=== PATIENT | male | born 1960 | race Caucasian/White ===

== ENCOUNTER 2019-11-18 17:27 | Emergency (ER) | payer BC ==
[2019-11-18] MEDS ORDERED: Sodium Chloride 0.9% 10 ML Syringe FLUSH PRN (17:47)
[2019-11-18] MEDS ORDERED: Sodium Chloride 0.9% 2.5 ML Syringe FLUSH PRN (17:47)
[2019-11-18] MEDS ORDERED: Diphtheria,Pertussis(Acell),Tetanus Vaccine 0.5 ML Syringe IM ONE (17:49)
--- NOTE | 2019-11-18 17:56 | EDM.PDOC ---
ED HPI GENERAL MEDICAL PROBLEM - General Chief Complaint: Upper Extremity Injury/Pain Stated Complaint: MIDDLE RT FINGER INJURY Time Seen by Provider: 11/18/19 17:35 - History of Present Illness INITIAL COMMENTS - FREE TEXT/NARRATIVE: History of present illness: Patient presents the right swollen middle finger he apparently had gone to an outpatient clinic earlier today and had an x-ray done and was diagnosed there with osteomyelitis he states he had cut the finger with a band saw 12 years ago requiring surgery and it has intermittently flared up and has nerve damage. He states for 3 weeks is been swollen but for the last 3 days has become much more swollen and hot and painful to the touch he denies any fever chills no other injuries no other concerns nothing is making it better touching it makes it worse Review of systems: As per history of present illness and below otherwise all systems reviewed and negative. Past medical history: As per history of present illness and as reviewed below otherwise noncontribut ory. Surgical history: As per history of present illness and as reviewed below otherwise noncontributory. Social history: No reported history of drug or alcohol abuse. Family history: As per history of present illness and as reviewed below otherwise noncontributory. Physical exam: HEENT: Atraumatic, normocephalic, pupils reactive, negative for conjunctival pallor or scleral icterus, mucous membranes moist, throat clear, neck supple, nontender, trachea midline. Lungs: Clear to auscultation, breath sounds equal bilaterally, chest nontender. Heart: S1S2, regular, negative for clicks, rubs, or JVD. Abdomen: Soft, nondistended, nontender. Negative for masses or hepatosplenomegaly. Negative for costovertebral tenderness. Pelvis: Stable nontender. Genitourinary: Deferred. Rectal: Deferred. Extremities: Atraumatic, negative for cords or calf pain. Neurovascular unremarkable. The right middle finger is extremely swollen red dry and cracked there is an abrasion over the middle knuckle that could be a likely source of infection. Neuro: Awake, alert, oriented. Cranial nerves II through XII unremarkable. Cerebellum unremarkable. Motor and sensory unremarkable throughout. Exam nonfocal. Diagnostics: [] Therapeutics: [] Impression: Finger infection [] Plan: Patient will need blood work IV antibiotics x-ray and admission most likely transfer to a center with a hand surgeon. [] Definitive disposition and diagnosis as appropriate pending reevaluation and review of above. right middle finger Pain Score (Numeric/FACES): 7 - Related Data Allergies Allergy/AdvReac Type Severity Reaction Status Date / Time Penicillins Allergy Cannot Verified 11/18/19 17:42 Remember Home Meds: Home Meds . [No Known Home Meds] 11/18/19 [History] Review of Systems - Review of Systems Review Of Systems: See Below ED EXAM, GENERAL - Physical Exam Exam: See Below Course - Vital Signs Text/Narrative:: 3 view right hand read interpreted by me there is postoperative change in the right middle finger the middle phalanx appears to have some destructive lesion consistent with osteomyelitis in the distal half of the phalanx there is a obvious gross tissue swelling in the middle digit. No gas is present read and interpreted by me I discussed case with Dr. Guerrero at 1850 at [facility] [facility] he will accept the patient the patient is insisting on going by private vehicle he is encouraged to go immediately from here to [facility] ED Last Recorded V/S: Last Vital Signs Temp 36.1 C 11/18/19 17:39 Pulse 87 11/18/19 17:39 Resp 18 11/18/19 17:39 BP 134/92 H 11/18/19 17:39 Pulse Ox 94 L 11/18/19 17:39 - Orders/Labs/Meds Orders: Active Orders 24 hr Category Date Time Status Vaccines to be Administered [RC] PER UNIT ROUTINE Care 11/18/19 17:49 Active Hand Comp Min 3V Rt [CR] Stat Exams 11/18/19 17:49 Taken Sodium Chloride 0.9% [Saline Flush] Med 11/18/19 17:47 Active 10 ml FLUSH ASDIRECTED PRN Sodium Chloride 0.9% [Saline Flush] Med 11/18/19 17:47 Active 2.5 ml FLUSH ASDIRECTED PRN Saline Lock Insert [OM.PC] Stat Oth 11/18/19 17:47 Ordered Medication Orders Sodium Chloride (Saline Flush) 10 ml FLUSH ASDIRECTED PRN PRN Reason: Keep Vein Open Last Admin: 11/18/19 18:06 Dose: 10 ml Documented by: VIALMEL Sodium Chloride (Saline Flush) 2.5 ml FLUSH ASDIRECTED PRN PRN Reason: Keep Vein Open Last Admin: 11/18/19 18:06 Dose: 2.5 ml Documented by: JOE Labs: Laboratory Tests 11/18/19 11/18/19 11/18/19 Range/Units 17:55 17:55 17:55 WBC 6.96 (4.0-11.0) K/uL RBC 4.75 (4.50-5.90) M/uL Hgb 14.3 (13.0-17.0) g/dL Hct 43.3 (38.0-50.0) % MCV 91.2 (80.0-98.0) fL MCH 30.1 (27.0-32.0) pg MCHC 33.0 (31.0-37.0) g/dL RDW Std Deviation 42.0 (28.0-62.0) fl RDW Coeff of Ezio 13 (11.0-15.0) % Plt Count 259 (150-400) K/uL MPV 9.20 (7.40-12.00) fL Neut % (Auto) 53.8 (48.0-80.0) % Lymph % (Auto) 33.8 (16.0-40.0) % [place] % (Auto) 9.5 (0.0-15.0) % Eos % (Auto) 2.6 (0.0-7.0) % Baso % (Auto) 0.3 (0.0-1.5) % Neut # (Auto) 3.8 (1.4-5.7) K/uL Lymph # (Auto) 2.4 (0.6-2.4) K/uL [place] # (Auto) 0.7 (0.0-0.8) K/uL Eos # (Auto) 0.2 (0.0-0.7) K/uL Baso # (Auto) 0.0 (0.0-0.1) K/uL Nucleated RBC % 0.0 /100WBC Nucleated RBCs # 0 K/uL ESR 25 H (0-19) mm/hr Sodium 138 (136-148) mmol/L Potassium 4.0 (3.5-5.1) mmol/L Chloride 105 (98-107) mmol/L Carbon Dioxide 24.9 (21.0-32.0) mmol/L BUN 14 (7.0-18.0) mg/dL Creatinine 0.9 (0.8-1.3) mg/dL Est Cr Clr Drug Dosing 83.65 mL/min Estimated GFR (MDRD) > 60.0 ml/min Glucose 127 H (74-106) mg/dL Calcium 8.8 (8.5-10.1) mg/dL Total Bilirubin 0.4 (0.2-1.0) mg/dL AST 51 H (15-37) IU/L ALT 65 H (14-63) IU/L Alkaline Phosphatase 110 (46-116) U/L C-Reactive Protein 2.50 H (0.00-0.90) mg/dL Total Protein 7.9 (6.4-8.2) g/dL Albumin 3.5 (3.4-5.0) g/dL Globulin 4.4 H (2.6-4.0) g/dL Albumin/Globulin Ratio 0.8 L (0.9-1.6) Meds: Medications Generic Name Dose Route Start Last Admin Trade Name Freq PRN Reason Stop Dose Admin Sodium Chloride 10 ml 11/18/19 17:47 11/18/19 18:06 Saline Flush FLUSH 10 ml ASDIRECTED PRN Administration Keep Vein Open Sodium Chloride 2.5 ml 11/18/19 17:47 11/18/19 18:06 Saline Flush FLUSH 2.5 ml ASDIRECTED PRN Administration Keep Vein Open Discontinued Medications Generic Name Dose Route Start Last Admin Trade Name Freq PRN Reason Stop Dose Admin Diphtheria/Tetanus/Acell Pertussis 0.5 ml 11/18/19 17:49 11/18/19 18:06 Adacel IM 11/18/19 17:50 0.5 ml .ONCE ONE Administration Vancomycin HCl 1,500 mg/ 100 mls @ 100 mls/hr 11/18/19 17:47 11/18/19 18:22 Sodium Chloride IV 11/18/19 18:46 Not Given ONETIME ONE Vancomycin HCl 1.5 gm/ Premix 300 mls @ 300 mls/hr 11/18/19 18:09 11/18/19 18:21 IV 11/18/19 18:10 300 mls/hr ONETIME ONE Administration Departure - Departure Time of Disposition: 18:52 Disposition: DC/Tfer to Acute Hospital 02 Preliminary Cause of *Q: Cardiac Arrest Condition: Good Clinical Impression: Osteomyelitis, Cellulitis of finger of right hand - Discharge Information *PRESCRIPTION DRUG MONITORING PROGRAM REVIEWED*: Not Applicable *COPY OF PRESCRIPTION DRUG MONITORING REPORT IN PATIENT DEREK: Not Applicable Instructions: Osteomyelitis, Adult, Cellulitis, Adult Referrals: PCP,None [Primary Care Provider] - Forms: ED Department Discharge Sepsis Event Note (ED) - Evaluation Sepsis Screening Result: No Definite Risk - Focused Exam Vital Signs: Vital Signs Temp Pulse Resp BP Pulse Ox 11/18/19 17:39 36.1 C 87 18 134/92 H 94 L - My Orders Last 24 Hours: My Active Orders 11/18/19 17:47 Sodium Chloride 0.9% [Saline Flush] 10 ml FLUSH ASDIRECTED PRN Sodium Chloride 0.9% [Saline Flush] 2.5 ml FLUSH ASDIRECTED PRN Saline Lock Insert [OM.PC] Stat 11/18/19 17:49 Vaccines to be Administered [RC] PER UNIT ROUTINE Hand Comp Min 3V Rt [CR] Stat - Assessment/Plan Last 24 Hours: My Active Orders 11/18/19 17:47 Sodium Chloride 0.9% [Saline Flush] 10 ml FLUSH ASDIRECTED PRN Sodium Chloride 0.9% [Saline Flush] 2.5 ml FLUSH ASDIRECTED PRN Saline Lock Insert [OM.PC] Stat 11/18/19 17:49 Vaccines to be Administered [RC] PER UNIT ROUTINE Hand Comp Min 3V Rt [CR] Stat
[2019-11-18 18:33] LABS: BLOOD UREA NITROGEN,BUN 14 mg/dL (7.0-18.0); CARBON DIOXIDE,CO2 24.9 mmol/L (21.0-32.0); CHLORIDE,CL 105 mmol/L (98-107); GLUCOSE RANDOM 127 mg/dL (74-106); SODIUM,NA 138 mmol/L (136-148)
--- NOTE | 2019-11-18 18:53 | CR ---
Right hand: 3 views of the right hand were obtained. Comparison: No previous study. Prior surgery is noted within the distal middle phalanx of the right 2nd finger. Distal fragments are poorly seen with cerclage wire in place. Diffuse soft tissue swelling is noted. Findings are suspicious for cellulitis and osteomyelitis at the surgery site. Joint spaces are maintained. No additional abnormality is noted. Impression: 1. Soft tissue swelling with the 3rd finger. Findings are suspicious for cellulitis and possible osteomyelitis at the surgical site. Diagnostic code #5 This report was dictated in MDT
== END 2019-11-18 19:30 ==
LOC: MW.ED 17:27
DX: L03.011 Cellulitis of right finger (principal); M86.9 Osteomyelitis, unspecified; Z88.0 Allergy status to penicillin; Z23 Encounter for immunization
CPT/HCPCS: 36415; 73130; 80053; 85025; 85652; 86140; 90471; 90715; 96365; 99285; J3370; 99283

== ENCOUNTER 2022-12-12 14:33 | Emergency (ER) | payer SELFPAY ==
[2022-12-12] MEDS ORDERED: Sodium Chloride 0.9% 20 ML SDV IV PRN (14:47)
[2022-12-12] MEDS ORDERED: Sodium Chloride 0.9% 2.5 ML Syringe FLUSH PRN (14:47)
[2022-12-12] MEDS ORDERED: Sodium Chloride 0.9% 10 ML Syringe FLUSH PRN (14:47)
[2022-12-12] MEDS ORDERED: Tenecteplase 50 MG Kit ONE (14:58)
[2022-12-12 15:22] LABS: BASOPHILS PERCENT AUTO 0.3 % (0.0-1.5); EOSINOPHILS ABSOLUTE AUTO 0.1 K/uL (0.0-0.7); EOSINOPHILS PERCENT AUTO 1.4 % (0.0-7.0); HEMATOCRIT 47.4 % (38.0-50.0); HEMOGLOBIN 16.4 g/dL (13.0-17.0); LYMPHOCYTES ABSOLUTE AUTO 2.3 K/uL (0.6-2.4); LYMPHOCYTES PERCENT AUTO 29.5 % (16.0-40.0); MEAN CORPUSCULAR HEMOGLOBIN 32.6 pg (27.0-32.0); MEAN CORPUSCULAR HGB CONC 34.6 g/dL (31.0-37.0); MEAN CORPUSCULAR VOLUME 94.2 fL (80.0-98.0); MONOCYTES ABSOLUTE AUTO 0.7 K/uL (0.0-0.8); MONOCYTES PERCENT AUTO 8.7 % (0.0-15.0); NEUTROPHILS ABSOLUTE AUTO 4.7 K/uL (1.4-5.7); NEUTROPHILS PERCENT AUTO 60.1 % (48.0-80.0); NRBC ABSOLUTE 0 K/uL; PLATELET COUNT,PLT 250 K/uL (150-400); RED BLOOD CELL COUNT 5.03 M/uL (4.50-5.90)
[2022-12-12 15:44] LABS: INR 0.96 (0.86-1.11); PTT,PARTIAL THROMBOPLSTIN TIME 26.7 SEC (23.9-30.7)
[2022-12-12 15:46] LABS: A/G RATIO 0.8 (0.9-1.6); ALBUMIN 3.6 g/dL (3.4-5.0); BILIRUBIN TOTAL 0.2 mg/dL (0.2-1.0); CALCIUM 8.8 mg/dL (8.5-10.1); CARBON DIOXIDE,CO2 22.8 mmol/L (21.0-32.0); CREATININE 0.9 mg/dL (0.8-1.3); EST CRCL DRUG DOSING (CG) 77.78 mL/min; POTASSIUM,K 3.8 mmol/L (3.5-5.1); PROTEIN TOTAL,TP 7.9 g/dL (6.4-8.2)
[2022-12-12] MEDS ORDERED: Tenecteplase 50 MG Kit IV STA (15:46)
[2022-12-12] MEDS ORDERED: Ofloxacin 0.3% Ophth Soln 5 ML Bottle EARLF ONE (15:54)
[2022-12-12] MEDS ORDERED: Cefdinir 300 MG Cap PO ONE (15:55)
[2022-12-12] MEDS ORDERED: Azithromycin 250 MG Tab PO ONE (15:55)
== END 2022-12-12 17:08 ==
LOC: MW.ED 14:33
DX: I63.9 Cerebral infarction, unspecified (principal); Z88.0 Allergy status to penicillin
CPT/HCPCS: 36415; 37195; 70450; 70450-26; 70496; 70496-26; 70498; 70498-26; 80053; 82947; 84484; 85025; 85610; 85730; 99291; 99292; A9270-GY; J3101; J3490

== ENCOUNTER 2024-03-31 10:38 | Emergency (ER) | payer SELFPAY ==
[2024-03-31 11:29] LABS: BASOPHILS ABSOLUTE AUTO 0.03 K/uL (0.00-0.20); BASOPHILS PERCENT AUTO 0.5 % (0.0-1.0); EOSINOPHILS ABSOLUTE AUTO 0.05 K/uL (0.00-0.45); EOSINOPHILS PERCENT AUTO 0.8 % (0.0-6.0); HEMATOCRIT 44.8 % (42.0-52.0); HEMOGLOBIN 15.7 g/dL (14.0-18.0); IMMATURE GRAN ABSOLUTE AUTO 0.02 K/uL (0.00-0.05); IMMATURE GRAN PERCENT AUTO 0.3 % (0.0-0.4); LYMPHOCYTES ABSOLUTE AUTO 1.99 K/uL (1.00-4.80); LYMPHOCYTES PERCENT AUTO 33.8 % (24.0-44.0); MEAN CORPUSCULAR HEMOGLOBIN 31.9 pg (28.0-32.0); MEAN CORPUSCULAR VOLUME 91.1 fL (83.0-99.0); MEAN PLATELET VOLUME 9.7 fL (9.4-12.4); MONOCYTES ABSOLUTE AUTO 0.58 K/uL (0.00-0.80); MONOCYTES PERCENT AUTO 9.8 % (0.0-8.0); NEUTROPHILS ABSOLUTE AUTO 3.22 K/uL (1.80-7.70); NEUTROPHILS PERCENT AUTO 54.8 % (41.0-71.0); PLATELET COUNT,PLT 118 K/uL (150-400); RED BLOOD CELL COUNT 4.92 M/uL (4.52-5.90); WHITE BLOOD CELL COUNT,WBC 5.89 K/uL (3.9-11.3)
[2024-03-31 11:52] LABS: CALCIUM 8.5 mg/dL (8.5-10.1); CARBON DIOXIDE,CO2 25.6 mmol/L (21.0-32.0); CREATININE 0.8 mg/dL (0.8-1.3); EST CRCL DRUG DOSING (CG) 95.74 mL/min; POTASSIUM,K 3.9 mmol/L (3.5-5.1)
== END 2024-03-31 12:08 | disposition home or self-care (01) ==
LOC: MW.ED 10:38
DX: Z02.89 Encounter for other administrative examinations (principal); M25.512 Pain in left shoulder; Z88.0 Allergy status to penicillin; Z75.8 Other problems related to medical facilities and other health care
CPT/HCPCS: 36415; 73030-26-LT; 73030-LT; 80048; 85025; 99284